=== PATIENT | male | born 1930 | race Caucasian/White ===

== ENCOUNTER 2016-12-05 11:19 | Emergency (ER) | payer OTHER ==
[~2016-12-05 11:19] MED LIST: ASCO-63 PO; ATOR-24 PO; BRIM0.2S OPB; CARV25TA2 PO; CLOP1TAB15 PO; ETAN50IN3 INJ; FOLI1TAB7 PO; HYDR-5688 PO; LATA0.009 OP; LEFL20TA PO; LISI40TA PO; OMEG10007 PO; TAMS0.4C38 PO; TRAM-10 PO
[2016-12-05 11:28] VITALS: TEMP 36.6; Ht 165.1 cm
--- NOTE | 2016-12-05 12:04 | EMERGENCY ROOM VISIT NOTE ---
History First contact with patient: 11:44 Chief Complaint: FALL Stated Complaint: FALL, INCREASED WEAKNESS, RESPIRATORY SX History of Present Illness The patient is a 86 year old male who presents to the Emergency Room accompanied by family members for evaluation of increased weakness recently. The patient reports that he had a minor fall today. He states that he was stepping out the door and his left leg gave out, causing him to fall down. The patient reports he did not injure anything when he fell. The patient denies hitting his head. He states he is typically able to walk with the aid of a walker. His family members are concerned because he has had increased weakness recently as well as a cough and chest congestion. The patient denies any significant complaints at this time. He does have a history of TIA, diabetes, and hypertension. He denies any fevers/chills, abdominal pain, hematochezia, melena, urinary symptoms, chest pain or shortness of breath. Review of Systems A complete 10-point Review of Systems was discussed with the patient, with pertinent positives and negatives listed in the History of Present Illness. All remaining Review of Systems questions can be considered negative unless otherwise specified. Past Medical/Surgical History Medical Problems: (1) Diabetes mellitus, type 2 (2) Hypertension (3) Rheumatoid arthritis Social History Smoking Status: Never Smoker Marital Status: Occupation Status: retired Current/Historical Medications Scheduled Ascorbic Acid (Vitamin C), 500 MG PO DAILY Atorvastatin (Lipitor), 40 MG PO HS Carvedilol (Coreg), 25 MG PO BID Clopidogrel (Plavix), 75 MG PO DAILY Etanercept (Enbrel Sureclick), 1 DOSE INJ EVERY 2 WEEKS Fish Oil (Bullock-3), 1 CAP PO DAILY Folic Acid (Folvite), 1 MG PO DAILY Gabapentin (Neurontin), 400 MG PO TID Latanoprost (Xalatan 0.005% Oph [place]), 1 DROPS OP HS Leflunomide (Arava), 10 MG PO UD Lisinopril (Zestril), 40 MG PO DAILY Tamsulosin Hcl (Flomax), 0.4 MG PO HS Scheduled PRN Tramadol (Ultram), 50-100 MG PO Q4H PRN for Pain Allergies Coded Allergies: Penicillins (Unverified Allergy, Severe, RASH, 12/05/16) Physical Exam Vital Signs Date Time Temp Pulse Resp B/P Pulse Ox O2 Delivery O2 Flow Rate FiO2 12/05/16 13:48 62 20 171/88 97 12/05/16 12:35 56 12/05/16 12:32 58 20 160/89 98 Room Air 12/05/16 12:32 58 154/87 62 162/96 71 159/99 12/05/16 12:23 96 Room Air 12/05/16 11:28 36.6 64 18 153/88 98 Room Air Physical Exam VITALS: Vitals are noted on the nurse's note and reviewed by myself. Vital signs stable. GENERAL: This is an 86-year-old male, in no acute distress, nondiaphoretic, well -developed well-nourished. SKIN: The skin was without rashes, erythema, edema, or bruising. HEAD: Normocephalic atraumatic. EARS: External auditory canals clear, tympanic membranes pearly fitzgerald without erythema or effusion bilaterally. EYES: Pupils equal round and reactive to light and accommodation. Extraocular movements intact. MOUTH: Mucous membranes moist. Tonsils are not enlarged. Pharynx without erythema or exudate. NECK: Supple without nuchal rigidity. No lymphadenopathy. Cervical spine is nontender. HEART: Regular rate and rhythm without murmurs gallops or rubs. LUNGS: Minimal crackles heard at the right base. No retractions or accessory muscle use. ABDOMEN: Positive bowel sounds x 4. Soft, nontender to palpation. MUSCULOSKELETAL: Full range of motion, strength 5/5 throughout. NEURO: Patient was alert and oriented to person place and time. Normal sensation to light and sharp touch. No focal neurological deficits. Medical Decision & Procedures ER Provider Diagnostic Interpretation: CHEST ONE VIEW PORTABLE CLINICAL HISTORY: weakness, cough dyspnea COMPARISON STUDY: 06/23/2014 FINDINGS: Chronic elevation right hemidiaphragm. Lungs are considered clear. Heart top limits normal in terms of size. Mild tortuosity thoracic aorta. IMPRESSION: Chronic change. No acute process. Laboratory Results 12/05/16 12:20 Red Blood Count 4.07, Mean Corpuscular Volume 94.8, Mean Corpuscular Hemoglobin 31.7, Mean Corpuscular Hemoglobin Concent 33.4, Mean Platelet Volume 10.7, Neutrophils (%) (Auto) 52.1, Lymphocytes (%) (Auto) 22.9, Monocytes (%) (Auto) 16.7, Eosinophils (%) (Auto) 7.7, Basophils (%) (Auto) 0.3, Neutrophils # (Auto ) 3.19, Lymphocytes # (Auto) 1.40, Monocytes # (Auto) 1.02, Eosinophils # (Auto ) 0.47, Basophils # (Auto) 0.02 12/05/16 12:20 Test 12/05/16 12:20 12/05/16 12:42 White Blood Count 6.12 K/uL (4.8-10.8) Red Blood Count 4.07 M/uL (4.7-6.1) Hemoglobin 12.9 g/dL (14.0-18.0) Hematocrit 38.6 % (42-52) Mean Corpuscular Volume 94.8 fL (80-100) Mean Corpuscular Hemoglobin 31.7 pg (25-34) Mean Corpuscular Hemoglobin Concent 33.4 g/dl (32-36) Platelet Count 150 K/uL (130-400) Mean Platelet Volume 10.7 fL (7.4-10.4) Neutrophils (%) (Auto) 52.1 % Lymphocytes (%) (Auto) 22.9 % Monocytes (%) (Auto) 16.7 % Eosinophils (%) (Auto) 7.7 % Basophils (%) (Auto) 0.3 % Neutrophils # (Auto) 3.19 K/uL (1.4-6.5) Lymphocytes # (Auto) 1.40 K/uL (1.2-3.4) Monocytes # (Auto) 1.02 K/uL (0.11-0.59) Eosinophils # (Auto) 0.47 K/uL (0-0.5) Basophils # (Auto) 0.02 K/uL (0-0.2) RDW Standard Deviation 46.8 fL (36.4-46.3) RDW Coefficient of Variation 13.5 % (11.5-14.5) Immature Granulocyte % (Auto) 0.3 % Immature Granulocyte # (Auto) 0.02 K/uL (0.00-0.02) Anion Gap 7.0 mmol/L (3-11) Estimated GFR () 92.4 Estimated GFR (Non- 79.8 BUN/Creatinine Ratio 26.6 (10-20) Calcium Level 8.4 mg/dl (8.5-10.1) Magnesium Level 1.9 mg/dl (1.8-2.4) Total Bilirubin 0.4 mg/dl (0.2-1) Aspartate Amino Transf (AST/SGOT) 21 U/L (15-37) Alanine Aminotransferase (ALT/SGPT) 30 U/L (12-78) Alkaline Phosphatase 95 U/L (45-117) Troponin I < 0.015 ng/ml (0-0.045) Total Protein 6.4 gm/dl (6.4-8.2) Albumin 2.9 gm/dl (3.4-5.0) Globulin 3.5 gm/dl (2.5-4.0) Albumin/Globulin Ratio 0.8 (0.9-2) Urine Color YELLOW Urine Appearance CLEAR (CLEAR) Urine pH 5.5 (4.5-7.5) Urine Specific [place] 1.015 (1.000-1.030) Urine Protein NEG (NEG) Urine Glucose (UA) NEG (NEG) Urine Ketones NEG (NEG) Urine Occult Blood NEG (NEG) Urine Nitrite NEG (NEG) Urine Bilirubin NEG (NEG) Urine Urobilinogen NEG (NEG) Urine Leukocyte Esterase NEG (NEG) ECG Rate (beats per minute): 57 Rhythm: normal sinus Findings: LBBB, left axis deviation Comparison ECG Date: no prior available Medical Decision Differential diagnosis includes infection, metabolic abnormality, pneumonia, anemia, among others. The patient was evaluated as above. Labs were drawn and IV access was obtained. Imaging studies were performed and read by radiology as above. The patient was reassessed multiple times during their stay in the emergency department and remained in stable condition. The patient is an 86-year-old male who presents today for evaluation of a fall. The patient reports he has no symptoms at this time, but is here at the request of his children. Labs revealed no leukocytosis, anemia or concerning electrolyte abnormalities. Urinalysis was not suggestive of infection. Chest x -ray showed no evidence of pneumonia or pulmonary congestion. EKG showed a left bundle-branch block, which the patient's daughter reports is chronic for him. Orthostatic vital signs were negative. As the patient does not have any complaints, I do not feel that further workup is necessary at this time. He was instructed to follow-up with his primary care provider within 48 hours. He should return here for increasing weakness, or any onset of new numbness, weakness or any other new/concerning symptoms. Based on the patient's presentation, lab results, and imaging studies, I feel the patient is stable for outpatient treatment. The patient's case was reviewed with Dr. Wallace, ED attending physician, who agreed with my assessment and treatment plan. Discharge instructions were reviewed with the patient. The patient verbalized understanding of my assessment and treatment plan and was discharged home in good condition. Impression Primary Impression: Fall Departure Information Dispostion Home / Self-Care Condition GOOD Referrals Elizabeth March C.R.N.P. (PCP) Patient Instructions My [facility] [place] Additional Instructions Rest and drink plenty of fluids. You should schedule a follow-up appointment with the primary care provider within 48 hours for further evaluation of the weakness. Use the walker when up and about. Return to the emergency department immediately with increasing weakness, numbness, or any other new/concerning symptoms. Problem Qualifiers Primary Impression: Fall Encounter type: initial encounter Qualified Codes: W19.XXXA - Unspecified fall, initial encounter
[2016-12-05] MEDS ORDERED: GABA400C PO (12:10)
[2016-12-05 12:23] VITALS: O2SAT 96
--- NOTE | 2016-12-05 12:28 | DIAGNOSTIC IMAGING REPORT ---
CHEST ONE VIEW PORTABLE CLINICAL HISTORY: weakness, cough dyspnea COMPARISON STUDY: 06/23/2014 FINDINGS: Chronic elevation right hemidiaphragm. Lungs are considered clear. Heart top limits normal in terms of size. Mild tortuosity thoracic aorta. IMPRESSION: Chronic change. No acute process. Electronically signed by: Parish Amanda M.D. 12/05/2016 12:26 PM Dictated Date/Time: 12/05/2016 12:26 PM
[2016-12-05 12:33] LABS: BASO % 0.3 %; BASO ABS # 0.02 K/uL (0-0.2); COMPLETE YES; EOS % 7.7 %; HEMATOCRIT 38.6 % (42-52); IG% 0.3 %; LYMPH % 22.9 %; MEAN CELL VOLUME 94.8 fL (80-100); MEAN CORPUSCULAR HEMOGLOBIN 31.7 pg (25-34); MEAN CORPUSCULAR HGB CONC 33.4 g/dl (32-36); MEAN PLATELET VOLUME 10.7 fL (7.4-10.4); MONO % 16.7 %; NEUT % 52.1 %; PLATELET COUNT 150 K/uL (130-400); RED BLOOD COUNT 4.07 M/uL (4.7-6.1); WHITE BLOOD COUNT 6.12 K/uL (4.8-10.8)
[2016-12-05 12:52] LABS: URINE APPEARANCE CLEAR (CLEAR); URINE BILIRUBIN NEG (NEG); URINE COLOR YELLOW; URINE NITRITE NEG (NEG); URINE PH 5.5 (4.5-7.5); URINE SPECIFIC GRAVITY 1.015 (1.000-1.030); UROBILINOGEN NEG (NEG); ZZUR CULT IF INDIC CLEAN CATCH NO
[2016-12-05 12:53] LABS: ALT/SGPT 30 U/L (12-78); AST/SGOT 21 U/L (15-37); BLOOD UREA NITROGEN 21 mg/dl (7-18); BUN/CREATININE RATIO 26.6 (10-20); CALCIUM 8.4 mg/dl (8.5-10.1); CARBON DIOXIDE 26 mmol/L (21-32); CHLORIDE 111 mmol/L (98-107); GLUCOSE 92 mg/dl (70-99); MAGNESIUM 1.9 mg/dl (1.8-2.4); POTASSIUM 4.2 mmol/L (3.5-5.1); SODIUM 144 mmol/L (136-145)
[2016-12-05 12:54] LABS: MANUAL MICROSCOPIC REQUIRED? NO; REVIEW REQ? NO
[2016-12-05 12:58] LABS: ALB/GLOB RATIO 0.8 (0.9-2); ALKALINE PHOSPHATASE 95 U/L (45-117)
[2016-12-05 13:48] VITALS: BP 171/88; PULSE 62; O2SAT 97
== END 2016-12-05 13:53 | disposition home or self-care (01) ==
LOC: C.EDB 11:20 → C.EDA 13:53
DX: Z04.3 Encounter for examination and observation following other accident (principal); W19.XXXA Unspecified fall, initial encounter; E11.9 Type 2 diabetes mellitus without complications; I10 Essential (primary) hypertension; M06.9 Rheumatoid arthritis, unspecified

== ENCOUNTER → 2017-03-02 | Outpatient (CLI) | payer OTHER ==
[~2017-03-02] MED LIST changes: -BRIM0.2S OPB; +GABA400C PO; -HYDR-5688 PO; -TRAM-10 PO
== END | disposition home or self-care (01) ==
LOC: C.LABSPEC 16:39
PROVIDERS: ATTEND Nurse Practitioner Adult Health
DX: R19.7 Diarrhea, unspecified (principal)

== ENCOUNTER → 2017-04-17 | Outpatient (CLI) | payer OTHER ==
[2017-04-17 09:47] LABS: CHOLESTEROL/HDL RATIO 2.3
[2017-04-17 09:49] LABS: ESTIMATED AVERAGE GLUCOSE 126 mg/dl; HA1C FLAG Normal (Normal)
== END | disposition home or self-care (01) ==
LOC: C.LAB1850 06:50
PROVIDERS: ATTEND Nurse Practitioner Adult Health
DX: E11.9 Type 2 diabetes mellitus without complications (principal); E78.5 Hyperlipidemia, unspecified

== ENCOUNTER → 2017-05-25 | Outpatient (CLI) | payer OTHER ==
[2017-05-25 16:31] LABS: HEMATOCRIT 40.5 % (42-52); MEAN CELL VOLUME 96.2 fL (80-100); MEAN CORPUSCULAR HEMOGLOBIN 32.3 pg (25-34); MEAN CORPUSCULAR HGB CONC 33.6 g/dl (32-36); MEAN PLATELET VOLUME 10.8 fL (7.4-10.4); PLATELET COUNT 151 K/uL (130-400); RED BLOOD COUNT 4.21 M/uL (4.7-6.1); WHITE BLOOD COUNT 6.38 K/uL (4.8-10.8)
[2017-05-25 17:08] LABS: ALT/SGPT 28 U/L (12-78); AST/SGOT 19 U/L (15-37); BLOOD UREA NITROGEN 24 mg/dl (7-18); BUN/CREATININE RATIO 28.1 (10-20); CARBON DIOXIDE 28 mmol/L (21-32); CHLORIDE 110 mmol/L (98-107); CREATININE 0.85 mg/dl (0.60-1.40); GLUCOSE 82 mg/dl (70-99); POTASSIUM 4.2 mmol/L (3.5-5.1); SODIUM 141 mmol/L (136-145)
[2017-05-25 17:11] LABS: ALB/GLOB RATIO 0.8 (0.9-2); ALKALINE PHOSPHATASE 108 U/L (45-117)
== END | disposition home or self-care (01) ==
LOC: C.LAB1850 15:36
PROVIDERS: ATTEND Physician Assistant
DX: I42.9 Cardiomyopathy, unspecified (principal)